=== PATIENT | male | born 1985 | race American Indian/Alaskan Native ===

== ENCOUNTER 2018-03-08 21:05 | Emergency (ER) | payer OTHER ==
[2018-03-08] MEDS ORDERED: TYLENOL PO ONE (21:56)
[2018-03-08] MEDS ORDERED: TYLENOL ONE (21:56)
[2018-03-08] MEDS ORDERED: TORADOL IM ONE (22:21)
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
[2018-03-08] MEDS ORDERED: MORPHINE IV ONE (22:31)
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
[2018-03-08 23:03] LABS: Basophils % (Auto) 0.3 % (0.0-1.8); Hematocrit 42.1 % (35.5-45.6); Hemoglobin 13.9 gm/dl (11.8-15.2); Lymphocytes # (Auto) 1.1 K/mm3 (1.2-5.4); Lymphocytes % (Auto) 10.4 % (13.4-35.0); Mean Corpuscular HGB Conc 33 % (32-34); Mean Corpuscular Volume 94 fl (84-94); Monocytes # (Auto) 0.4 K/mm3 (0.0-0.8); Monocytes % (Auto) 4.1 % (0.0-7.3); Platelet Count 260 K/mm3 (140-440); Red Blood Count 4.48 M/mm3 (3.65-5.03); Red Cell Distribution Width 13.8 % (13.2-15.2)
[2018-03-08 23:20] LABS: BUN/Creatinine Ratio 14; Blood Urea Nitrogen 11 mg/dL (9-20); Calcium 9.5 mg/dL (8.4-10.2); Hemolysis Index 13
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
[2018-03-09 00:34] VITALS: BP 133/87
== END 2018-03-09 00:10 | disposition other institution (70) ==
LOC: ED 21:05
DX: S12.600A Unspecified displaced fracture of seventh cervical vertebra, initial encounter for closed fracture (principal); S22.9XXA Fracture of bony thorax, part unspecified, initial encounter for closed fracture; V98.8XXA Other specified transport accidents, initial encounter; Y93.89 Activity, other specified; Y99.8 Other external cause status; Y92.410 Unspecified street and highway as the place of occurrence of the external cause
CPT/HCPCS: 36415; 70450; 71250; 72125; 74176; 80048; 85025; 96374; 99291; J2270